=== PATIENT | male | born 1985 | race Caucasian/White ===

== ENCOUNTER → 2018-11-11 | Outpatient (CLI) | payer OTHER ==
--- NOTE | 2018-11-11 15:12 | XR ---
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 Osseous structures appear intact. Sell a is normal. Paranasal sinuses are clear. IMPRESSION: 1. No radiopaque foreign body in or about the orbits
--- NOTE | 2018-11-12 14:29 | MR ---
EXAMINATION TYPE: MR shoulder RT wo con DATE OF EXAM: 11/11/2018 COMPARISON: None HISTORY: Rt shoulder pain TECHNIQUE: Multiplanar, multisequence imaging of the right shoulder is performed without contrast. FINDINGS: There is hypertrophic change of the AC joint. There is significant mass effect upon the sup raspinatus tendon and muscle compatible with impingement. Intrasubstance signal within the tendon is compatible with tendinosis with no definite through thickness tear or retraction identified. No sizab le fluid collection in the subacromial subdeltoid bursa. Bicipital tendon is well situated within the bicipital groove and has a normal appearance within the rotator interval and intracapsular component. Bony labrum grossly intact. Benign cystic appearing change involving the head of the humerus can be a ssociated with chronic impingement. Inferior glenohumeral ligament is intact. 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
== END | disposition home or self-care (01) ==
LOC: RADMRIMAIN 14:32
PROVIDERS: ATTEND Family Medicine
DX: M19.011 Primary osteoarthritis, right shoulder (principal); M25.811 Other specified joint disorders, right shoulder; M67.911 Unspecified disorder of synovium and tendon, right shoulder
CPT/HCPCS: 70030

== ENCOUNTER 2019-09-14 02:12 | Emergency (ER) | payer OTHER ==
[2019-09-14] MEDS ORDERED: PROPARACAINE 0.5% OPHTH DROPS 15 ML BTL LEFT EYE STA (02:18)
[2019-09-14] MEDS ORDERED: DIPH,PERTUS(ACELL)TETVAC-LF 0.5 ML VIAL IM ONE (02:52)
--- NOTE | 2019-09-14 02:56 | ED ---
Eye Problem HPI - General Chief complaint: Eye Problems Stated complaint: Eye Problem Time Seen by Provider: 09/14/19 02:18 Source: patient Mode of arrival: ambulatory Limitations: no limitations - History of Present Illness Initial comments: Patient is a 34-year-old male presenting to the emergency department with a chief complaint of bilateral eye pain. 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 Patient reports he has gradually developed bi lateral eye pain along with photosensitivity. Patient denies any drainage. Patient reports the pain appears to be slightly worse on the right versus the left hip. Patient reports he does have "rough hands" and might have scratched one of the eyes. Patient does not wear contact lenses. Patient denies any blurry vision or pain with extraocular movements. - Related Data Previous Rx's Medication Instructions Recorded Tobramycin 0.3% Ophth Soln [Tobrex 1 drop BOTH EYES Q4H #1 bottle 09/14/19 0.3% Ophth Soln] Allergies Allergy/AdvReac Type Severity Reaction Status Date / Time No Known Allergies Allergy Verified 09/14/19 02:16 Review of Systems ROS Statement: Those systems with pertinent positive or pertinent negative responses have been documented in the HPI. ROS Other: All systems not noted in ROS Statement are negative. Past Medical History Past Medical History: No Reported History History of Any Multi-Drug Resistant Organisms: None Reported Past Surgical History: No Surgical Hx Reported Past Psychological History: No Psychological Hx Reported Smoking Status: Former smoker Past Alcohol Use History: None Reported Past Drug Use History: None Reported General Exam Limitations: no limitations General appearance: alert, in no apparent distress Head exam: Present: atraumatic, normocephalic, normal inspection Eye exam: Present: normal appearance, PERRL, EOMI, conjunctival injection (Bilateral), other (Corneal abrasion on the right eye about 5 mm away from visual field. Abrasion located at 6:00. No rust ring. Negative sindel sign.). Absent: scleral icterus, nystagmus, periorbital swelling, periorbital tenderness Pupils: Present: normal accommodation ENT exam: Present: normal exam, normal oropharynx, mucous membranes moist, TM's normal bilaterally, normal external ear exam Neck exam: Present: normal inspection, full ROM Respiratory exam: Present: normal lung sounds bilaterally Cardiovascular Exam: Present: regular rate, normal rhythm, normal heart sounds Extremities exam: Present: normal inspection, full ROM Back exam: Present: normal inspection, full ROM Neurological exam: Present: alert, oriented X3 Psychiatric exam: Present: normal affect, normal mood Skin exam: Present: warm, dry, intact, normal color Course Vital Signs 09/14/19 02:12 Temperature 98.0 F Pulse Rate 61 Respiratory 17 Rate Blood Pressure 130/86 O2 Sat by Pulse 99 Oximetry Medical Decision Making - Medical Decision Making Patient is a 34-year-old male presenting to the emergency department with a chief complaint of bilateral eye pain. Proparacaine drops were applied and patient reports improvement in the pain. Fluorescent staining of bilateral eyes shows an abrasion on the right eye that is about 5 mm away from the visual field and located at 6:00. No rust ring or sindel sign. Patient does not wear contact lenses. Patient given antibiotic ophthalmic drops. 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 Patient advised to rest his eyes. Patient advised to alternate between Tylenol and ibuprofen for pain control. Patient advised to wear protective welding. Patient advised to follow-up with ophthalmology if symptoms persist. I suspect the patient to have bilateral uv keratitis. Strict return parameters were thoroughly discussed with patient was understanding and agreeable. Case discussed with physician. Disposition Clinical Impression: Corneal abrasion, right, UV keratitis Disposition: HOME SELF-CARE Condition: Stable Instructions (If sedation given, give patient instructions): Eye Pain (ED) Additional Instructions: Please take prescribed medication as directed. 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 Please return to emergency department if symptoms worsen. Prescriptions: Tobramycin 0.3% Ophth Soln [Tobrex 0.3% Ophth Soln] 1 drop BOTH EYES Q4H #1 bottle Is patient prescribed a controlled substance at d/c from ED?: No Referrals: Yeison Gutierrez DO [Primary Care Provider] - 1-2 days Shay Dawson MD [STAFF PHYSICIAN] - 1-2 days Time of Disposition: 02:56
[2019-09-14 03:16] VITALS: BP 133/73; PULSE 77; RESP 18; TEMP 98
== END 2019-09-14 03:15 | disposition home or self-care (01) ==
LOC: EC 02:12
DX: S05.01XA Injury of conjunctiva and corneal abrasion without foreign body, right eye, initial encounter (principal); H16.133 Photokeratitis, bilateral; Z87.891 Personal history of nicotine dependence; W89.0XXA Exposure to welding light (arc), initial encounter; Y93.89 Activity, other specified; Y92.69 Other specified industrial and construction area as the place of occurrence of the external cause; Z53.8 Procedure and treatment not carried out for other reasons
CPT/HCPCS: 99283